=== PATIENT | female | born 2000 | race African-American/Black ===

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

== ENCOUNTER 2020-01-07 19:31 | Emergency (ER) | payer SELFPAY ==
[2020-01-07 19:39] VITALS: BP 131/58
--- NOTE | 2020-01-07 19:47 | ER Document Report ---
ED Medical Screen (RME) - General Chief Complaint: Nausea/Vomiting/Diarrhea Stated Complaint: VOMITING/NAUSEA/DIARRHEA Time Seen by Provider: 01/07/20 19:38 Mode of Arrival: Ambulatory Information source: Patient Notes: 19-year-old female presents to ED for complaint of abdominal pain diarrhea and headache. She states on Saturday she went to [email or web address] and by Saturday night she was having some severe abdominal pain and diarrhea. She states by Saturday she had a headache abdominal pain and soft stools. She states today she has had a headache and abdominal pain but no stools today. She states she did start her menstrual cycle this morning. 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 Patient is alert oriented respirations regular nonlabored speaking in full sentences. She states she cannot go back to work until she gets a work note. I will order blood and urine and have her evaluated by another provider. Patient states she has not had anything to eat since 1 PM and she has not had any abdominal pain since she ate last time. She states she did have pain right after she ate but she gets the pain worse right after she eats. I have greeted and performed a rapid initial assessment of this patient. A comprehensive ED assessment and evaluation of the patient, analysis of test results and completion of medical decision making process will be conducted by an additional ED providers. TRAVEL OUTSIDE OF THE [place] IN LAST 30 DAYS: No - Related Data Allergies/Adverse Reactions: Penicillins Allergy (Verified 06/03/19 15:19) Past Medical History Renal/ Medical History: Denies: Hx Peritoneal Dialysis - Immunizations Immunizations up to date: Yes Hx Diphtheria, Pertussis, Tetanus Vaccination: Yes Physical Exam - Vital signs Vitals: Temp Pulse Resp BP Pulse Ox 98.2 F 83 18 131/58 H 98 01/07/20 19:39 01/07/20 19:39 01/07/20 19:39 01/07/20 19:39 01/07/20 19:39 Course - Vital Signs Vital signs: Temp Pulse Resp BP Pulse Ox 98.2 F 83 18 131/58 H 98 01/07/20 19:39 01/07/20 19:39 01/07/20 19:39 01/07/20 19:39 01/07/20 19:39
[2020-01-07 20:55] LABS: APPEARANCE,URINE SLIGHTLY-CLOUDY; BILIRUBIN,URINE NEGATIVE (NEGATIVE); COLOR,URINE YELLOW; GLUCOSE, URINE NEGATIVE (NEGATIVE); KETONES,URINE NEGATIVE (NEGATIVE); LEUKOCYTE ESTERASE,URINE SMALL (NEGATIVE); NITRITE,URINE NEGATIVE (NEGATIVE); PROTEIN,URINE 30 mg/dL (NEGATIVE); URINE SPECIFIC GRAVITY 1.023; UROBILINOGEN,URINE NEGATIVE mg/dL (<2.0)
== END 2020-01-07 22:15 | disposition left against medical advice (07) ==
LOC: ER 19:31
DX: R10.9 Unspecified abdominal pain (principal); R19.7 Diarrhea, unspecified; R51.9 Headache, unspecified; Z88.0 Allergy status to penicillin; Z53.20 Procedure and treatment not carried out because of patient's decision for unspecified reasons
CPT/HCPCS: 81001; 81025; 99281

== ENCOUNTER 2020-03-14 19:09 | Emergency (ER) | payer SELFPAY ==
[2020-03-14] MEDS ORDERED: ONDANSETRON HCL INJ/PF 4 MG/2 ML SDV IV ONE (20:34)
[2020-03-14] MEDS ORDERED: NORMAL SALINE 1000 ML 1,000 ML IV ONE (20:34)
--- NOTE | 2020-03-14 20:36 | ER Document Report ---
ED Medical Screen (RME) - General Chief Complaint: Abdominal Pain Stated Complaint: STOMACH CRAMPS, NAUSEA Time Seen by Provider: 03/14/20 20:29 Mode of Arrival: Ambulatory Information source: Patient Notes: HPI; 20-year-old female with no previous medical problems presents to the emergency room complaining of nausea and abdominal cramping. Patient states she ate at [employer] last night and about an hour after eating she became nauseous and started cramping. States she feels like she has to have a bowel movement but has been unable to have one. No vomiting, no fevers, no urinary symptoms. States a family member gave her something for the nausea but she does not recall what it was states it did not help. States she tried taking MiraLAX without relief. PE: Alert and oriented x3. Lungs: Clear to auscultation without rales, rhonchi, wheezes. Heart: Tachycardic without murmurs, rubs, gallops. I have greeted and performed a rapid initial assessment of this patient. A comprehensive ED assessment and evaluation of the patient, analysis of test results and completion of the medical decision making process will be conducted by additional ED providers. I have specifically instructed the patient or family members with the patient to immediately return to any nursing staff should anything change in the patient's condition or with their chief complaint. TRAVEL OUTSIDE OF THE [place] IN LAST 30 DAYS: No - Related Data Allergies/Adverse Reactions: Penicillins Allergy (Verified 06/03/19 15:19) Past Medical History Renal/ Medical History: Denies: Hx Peritoneal Dialysis - Immunizations Immunizations up to date: Yes Hx Diphtheria, Pertussis, Tetanus Vaccination: Yes Physical Exam - Vital signs Vitals: Temp Pulse Resp BP Pulse Ox 99.0 F 108 H 20 127/69 H 99 03/14/20 19:38 03/14/20 19:38 03/14/20 19:38 03/14/20 19:38 03/14/20 19:38 Course - Vital Signs Vital signs: Temp Pulse Resp BP Pulse Ox 99.0 F 108 H 20 127/69 H 99 03/14/20 19:38 03/14/20 19:38 03/14/20 19:38 03/14/20 19:38 03/14/20 19:38
[2020-03-14 21:14] LABS: ABSOLUTE BASOPHILS # (AUTO) 0.1 10^3/uL (0.0-0.2); ABSOLUTE LYMPHOCYTES (AUTO) 1.4 10^3/uL (0.5-4.7); ABSOLUTE MONOCYTES (AUTO) 0.6 10^3/uL (0.1-1.4); ABSOLUTE NEUT (AUTO) 10.2 10^3/uL (1.7-8.2); BASOPHILS % (AUTO) 0.5 % (0-2); EOSINOPHILS % (AUTO) 0.1 % (0-6); HEMATOCRIT 36.5 % (36.0-47.0); HEMOGLOBIN 11.6 g/dL (12.0-15.5); LYMPHOCYTES % (AUTO) 11.3 % (13-45); MEAN CORPUSCULAR HEMOGLOBIN 24.9 pg (27.0-33.4); MEAN CORPUSCULAR HGB CONC 31.8 g/dL (32.0-36.0); MEAN CORPUSCULAR VOLUME 78 fl (80-97); MONOCYTES % (AUTO) 4.7 % (3-13); PLATELET COUNT 314 10^3/uL (150-450); RED BLOOD COUNT 4.66 10^6/uL (3.72-5.28); RED CELL DISTRIBUTION WIDTH 14.5 % (11.5-14.0); SEGMENTED NEUTROPHILS % (AUTO) 83.4 % (42-78); TOTAL CELLS COUNTED % (AUTO) 100 %; WHITE BLOOD COUNT 12.2 10^3/uL (4.0-10.5)
[2020-03-14 21:17] LABS: APPEARANCE,URINE CLEAR; BILIRUBIN,URINE NEGATIVE (NEGATIVE); COLOR,URINE STRAW; GLUCOSE, URINE NEGATIVE (NEGATIVE); KETONES,URINE NEGATIVE (NEGATIVE); LEUKOCYTE ESTERASE,URINE TRACE (NEGATIVE); NITRITE,URINE NEGATIVE (NEGATIVE); PROTEIN,URINE NEGATIVE (NEGATIVE); URINE SPECIFIC GRAVITY 1.003; UROBILINOGEN,URINE NEGATIVE mg/dL (<2.0)
[2020-03-14 21:37] LABS: ALBUMIN 4.4 g/dL (3.5-5.0); ALKALINE PHOSPHATASE 89 U/L (38-126); ANION GAP 9 (5-19); ASPARTATE AMINO TRANSFERASE 24 U/L (14-36); BILIRUBIN,DIRECT 0.1 mg/dL (0.0-0.4); BILIRUBIN,TOTAL 0.8 mg/dL (0.2-1.3); BLOOD UREA NITROGEN 8 mg/dL (7-20); CALCIUM 10.4 mg/dL (8.4-10.2); CARBON DIOXIDE 26 mmol/L (22-30); CHLORIDE 104 mmol/L (98-107); GLUCOSE 104 mg/dL (75-110); POTASSIUM 3.9 mmol/L (3.6-5.0)
--- NOTE | 2020-03-14 22:46 | RADIOLOGY REPORT (SQ) ---
EXAM DESCRIPTION: XR ABDOMEN 1 VIEW (KUB) COMPLETED DATE/TME: 03/14/2020 22:09 CLINICAL HISTORY: 20 years, Female, abdominal pain COMPARISON: None. NUMBER OF VIEWS: 2 TECHNIQUE: AP abdomen LIMITATIONS: None. FINDINGS: Nonspecific, nonobstructive bowel gas pattern. Evaluation for free air limited on a supine view. Abundant stool in the colon. Osseous structures are intact IMPRESSION: Abundant stool in the colon copyright 2010 [employer]- All Rights Reserved
--- NOTE | 2020-03-15 03:50 | ER Document Report ---
ED General - General Chief Complaint: Abdominal Pain Stated Complaint: STOMACH CRAMPS, NAUSEA Time Seen by Provider: 03/14/20 20:29 Mode of Arrival: Ambulatory TRAVEL OUTSIDE OF THE [place] IN LAST 30 DAYS: No - HPI Context: Chief Complaint: Abdominal cramps Historian: History obtained from patient HPI: This is a-year-old female presents to the ED complaining abdominal cramping x3 days. Patient says she ate at [employer] and soon after developed lower abdominal cramps. But no vomiting. Patient says she has not had a bowel movement in about 3 days which is unusual for her. eating or drinking will worsen these abdominal cramps, nothing relieves them. She took one of her friends nausea medications which did help her symptoms temporarily. Nominal cramping is intermittent and nonradiating. She denies dysuria, hematuria, vaginal discharge, fever, chills. No history abdominal surgeries. ROS: Constitutional: no fevers. HEENT: no TREJO, sore throat, or vision changes. CV: no chest pain or palpitations. Resp: no cough or SOB. GI: Lower abdominal cramping. Nausea. : no dysuria, hematuria, or incont. MSK: no back pain, no joint swelling/redness. Skin: no rashes or itching. Neuro: no seizures, weakness, numbness, or confusion. Hematological: no ecchymosis or easy bleeding. Endocrine: no polyuria/polydipsia, no heat/cold intolerance. Psych: no SI/HI, AH/VH or memory loss. PMHx: Reviewed and agree as charted by RN. PSHx: Reviewed and agree as charted by RN. SOCHx: Reviewed and agree as charted by RN. FHX: No significant familial comorbid conditions directly related to patient complaint Current Medications: Reviewed and agree with the patient medications as charted by the RN. Allergies: Reviewed and agree with the listed allergies as charted by the RN Physical Exam: Vitals: Reviewed in chart as documented by RN. General: Alert and in NAD. Head: Normocephalic; atraumatic Eyes: PERRLA, Conjunctivae clear sclerae non-icteric bilat ENT: no soft palate swelling or uvular deviation Neck: trachea midline, no unilateral swelling/tenderness/lymphadenopathy CV: RRR, no M/R/G; symmetric distal pulses Resp: respirations even and unlabored, CTA bilat. GI: Abdomen soft and nondistended. Tender at right lower quadrant McBurney's. Positive Rovsing sign. Negative psoas sign. Bowel sounds. No masses or HSM. No CVA tenderness bilaterally MSK: FROM of all extremities. No midline CTL spine tenderness/deformity Skin: warm, moist, good turgor. no rash/lesions Neuro: Alert and oriented X 4. following CN 2-12 intact. no unilateral weakness/numbness Psych: No SI/HI or AH/VH. ED Results: Medical Decision-Making: Diagnosis: Condition: Disposition: Notes: Chief Complaint: abdominal cramps Historian: History obtained from patient HPI: This is a 20 yo females the presents to the ER c/o lowe rabdominal cramping X 3 days. PT says she ate [employer] saturday and developed lower abdominal cramping soon after. cramping is intermittent and nonradiating. worse w/ eating. PT is tolerating small amounts of po intake. mild nausea but no vomiting. no BM in 3 days, pt usually has a BM daily. Denies fever, chills, dysuria, vaignal discharge, hematuria, cp, or sob. took a friends nausea medica tion which did help her symptoms temporarily. no prior abdominal surgeries. ROS: Constitutional: no fevers. HEENT: no TREJO, sore throat, or vision changes. CV: no chest pain or palpitations. Resp: no cough or SOB. GI: positive abdominal pain and nausea : no dysuria, hematuria, or incont. MSK: no back pain, no joint swelling/redness. Skin: no rashes or itching. Neuro: no seizures, weakness, numbness, or confusion. Hematological: no ecchymosis or easy bleeding. Endocrine: no polyuria/polydipsia, no heat/cold intolerance. Psych: no SI/HI, AH/VH or memory loss. PMHx: Reviewed and agree as charted by RN. PSHx: Reviewed and agree as charted by RN. SOCHx: Reviewed and agree as charted by RN. FHX: No significant familial comorbid conditions directly related to patient complaint Current Medications: Reviewed and agree with the patient medications as charted by the RN. Allergies: Reviewed and agree with the listed allergies as charted by the RN Physical Exam: Vitals: Reviewed in chart as documented by RN. General: Alert and in NAD. Head: Normocephalic; atraumatic Eyes: PERRLA, Conjunctivae clear sclerae non-icteric bilat ENT: no soft palate swelling or uvular deviation Neck: trachea midline, no unilateral swelling/tenderness/lymphadenopathy CV: RRR, no M/R/G; symmetric distal pulses Resp: respirations even and unlabored, CTA bilat. GI: abd soft and nondistended. tender to RLQ at mcburney's, positive rovsigns, neg psoas. mild voluntary guarding. no rebound. no cvat. MSK: FROM of all extremities. No midline CTL spine tenderness/deformity Skin: warm, moist, good turgor. no rash/lesions Neuro: Alert and oriented X 4. following CN 2-12 intact. no unilateral weakness/numbness Psych: No SI/HI or AH/VH. ED Results: Medical Decision-making/Differential Diagnosis: Consider various etiologies including but not limited to UTI, pyelonephritis, STD, PID, constipation, viral syndrome, AGE, ectopic , IUP, Abdominal pain, Hernia, Acute Gastritis, Appendicitis, Partial or Complete small bowel obstruction, Cholecysitis, Diverticulitis, Gastroenteritis, GERD, Nephrolithiasis, Pancreatitis, Peptic Ulcer Disease, Urinary Tract Infection, Pyelonephritis, Infection, metabolic derangement, ect plan - triage provider ordered UA/preg, basic labs, and KUB. labs reviwed- wbc 12.5. KUB- moderate stool burden This course of action was discussed with the patient and/or family. They were amenable to this, verbalized understanding, and were without further questions. - Related Data Allergies/Adverse Reactions: Penicillins Allergy (Verified 06/03/19 15:19) Past Medical History - General Information source: Patient - Social History Smoking Status: Never Smoker Family History: Reviewed & Not Pertinent Renal/ Medical History: Denies: Hx Peritoneal Dialysis - Immunizations Immunizations up to date: Yes Hx Diphtheria, Pertussis, Tetanus Vaccination: Yes Physical Exam - Vital signs Vitals: Temp Pulse Resp BP Pulse Ox 99.0 F 108 H 20 127/69 H 99 03/14/20 19:38 03/14/20 19:38 03/14/20 19:38 03/14/20 19:38 03/14/20 19:38 Course - Re-evaluation Re-evalutation: 03/15/20 03:59 Patient does appear to be constipated on her KUB. Considering her age and tenderness to the right lower quadrant I do have concern for an acute appendicitis. I recommended the patient that we obtain a CT scan to rule this out. She declined this and says she wants medication to help her go to the bathroom and to go home. The RN and myself had a further conversation with the patient once mom left as to our concerns about a possible appendicitis and the possible complications, including , if she does not get prompt treated for an acute appendicits. PT verbalized understanding but says her mother is pressuring her to leave and go home. Pt says she will f/u w/ her pcp and will also have her closely monitor her symptoms at home and if she developes worsening pain, fever/chill, vomiting she is to return immediately to the ER for a CT scan. she was also told the if she is able to have a BM and continues to have RLQ pain then she should also return right away. she verbalized understanding and agreed to plan. - Vital Signs Vital signs: Temp Pulse Resp BP Pulse Ox 98.5 F 97 16 119/59 L 99 03/15/20 01:48 03/15/20 01:48 03/15/20 01:48 03/15/20 01:48 03/15/20 01:48 - Laboratory Result Diagrams: 03/14/20 20:55 03/14/20 20:55 Laboratory results interpreted by me: 03/14/20 03/14/20 03/14/20 20:55 20:55 20:55 WBC 12.2 H Hgb 11.6 L MCV 78 L MCH 24.9 L MCHC 31.8 L RDW 14.5 H Lymph % (Auto) 11.3 L Absolute Neuts (auto) 10.2 H Seg Neutrophils % 83.4 H Calcium 10.4 H Ur Leukocyte Esterase TRACE H Discharge - Discharge Clinical Impression: Right lower quadrant abdominal pain Constipation Qualifiers: Constipation type: unspecified constipation type Qualified Code(s): K59.00 - Constipation, unspecified Condition: Stable Disposition: HOME, SELF-CARE Instructions: Constipation ([facility]), Observation for Appendicitis ([facility]) Additional Instructions: take medications as prescribed. drink plenty of fluids. there is a possibility that your symptoms could be appendicitis which is a surgical emergency. IF you have onging right lower abdominal pain, vomiting, fever, or chills- then immediately return to the ER to have a Cat scan of you abdomen. follow up with your doctor tomorrow for a recheck. Prescriptions: Ondansetron [Zofran Odt 4 mg Tablet] 1 - 2 tab PO Q4HP PRN #10 tab.rapdis PRN Reason: Magnesium Citrate [Citrate of Magnesia 296 ml Bottle] 296 ml PO DAILY #1 bottle Forms: Return to Work
[2020-03-15 04:36] VITALS: BP 114/61
== END 2020-03-15 04:39 | disposition home or self-care (01) ==
LOC: ER 19:09
DX: K59.00 Constipation, unspecified (principal); R10.31 Right lower quadrant pain; R11.0 Nausea; R10.30 Lower abdominal pain, unspecified; Z88.0 Allergy status to penicillin
CPT/HCPCS: 36415; 74018; 80053; 81001; 84703; 85025; 99284

== ENCOUNTER 2020-03-16 11:56 | Emergency (ER) | payer SELFPAY ==
--- NOTE | 2020-03-16 12:09 | ER Document Report ---
ED Medical Screen (RME) - General Chief Complaint: Abdominal Pain Stated Complaint: ABDOMINAL PAIN Time Seen by Provider: 03/16/20 12:07 Mode of Arrival: Ambulatory Information source: Patient Notes: 20-year-old female presents to ED for complaint of left flank pain and right lower abdomen pain. She states they started Saturday and she came here yesterday she states the doctor yesterday want to do a CAT scan but she was in a hurry because her ride needed to leave and he told her if it had any more pain she was to come back to get the CAT scan. Will review the urine and blood and probably order the CAT scan at this time. I have reviewed the labs she did have elevated white count I will order the CT abdomen pelvis with IV and oral contrast. I have greeted and performed a rapid initial assessment of this patient. A comprehensive ED assessment and evaluation of the patient, analysis of test results and completion of medical decision making process will be conducted by an additional ED providers. TRAVEL OUTSIDE OF THE [place] IN LAST 30 DAYS: No - Related Data Allergies/Adverse Reactions: Penicillins Allergy (Verified 06/03/19 15:19) Past Medical History Renal/ Medical History: Denies: Hx Peritoneal Dialysis - Immunizations Immunizations up to date: Yes Hx Diphtheria, Pertussis, Tetanus Vaccination: Yes Physical Exam - Vital signs Vitals: Temp Pulse Resp BP Pulse Ox 98.2 F 74 16 122/59 L 99 03/16/20 12:01 03/16/20 12:03/16/20 12:01 03/16/20 12:01 03/16/20 12:01 Course - Vital Signs Vital signs: Temp Pulse Resp BP Pulse Ox 98.2 F 74 16 122/59 L 99 03/16/20 12:01 03/16/20 12:01 03/16/20 12:01 03/16/20 12:01 03/16/20 12:01
[2020-03-16 13:14] LABS: ABSOLUTE BASOPHILS # (AUTO) 0.1 10^3/uL (0.0-0.2); ABSOLUTE EOSINOPHILS # (AUTO) 0.1 10^3/uL (0.0-0.6); ABSOLUTE LYMPHOCYTES (AUTO) 1.6 10^3/uL (0.5-4.7); ABSOLUTE MONOCYTES (AUTO) 0.4 10^3/uL (0.1-1.4); ABSOLUTE NEUT (AUTO) 3.2 10^3/uL (1.7-8.2); BASOPHILS % (AUTO) 0.9 % (0-2); EOSINOPHILS % (AUTO) 1.2 % (0-6); HEMATOCRIT 34.9 % (36.0-47.0); HEMOGLOBIN 11.1 g/dL (12.0-15.5); LYMPHOCYTES % (AUTO) 30.2 % (13-45); MEAN CORPUSCULAR HEMOGLOBIN 25.3 pg (27.0-33.4); MEAN CORPUSCULAR HGB CONC 31.9 g/dL (32.0-36.0); MEAN CORPUSCULAR VOLUME 79 fl (80-97); MONOCYTES % (AUTO) 7.8 % (3-13); PLATELET COUNT 295 10^3/uL (150-450); RED BLOOD COUNT 4.41 10^6/uL (3.72-5.28); RED CELL DISTRIBUTION WIDTH 14.2 % (11.5-14.0); SEGMENTED NEUTROPHILS % (AUTO) 59.9 % (42-78); TOTAL CELLS COUNTED % (AUTO) 100 %; WHITE BLOOD COUNT 5.4 10^3/uL (4.0-10.5)
[2020-03-16] MEDS ORDERED: ONDANSETRON 4 MG TAB.RAPDIS PO ONE (13:25)
[2020-03-16] MEDS ORDERED: MORPHINE SULFATE 10 MG/ML INJ IV ONE (13:25)
[2020-03-16] MEDS ORDERED: NORMAL SALINE 1000 ML 1,000 ML IV ONE (13:25)
[2020-03-16 13:29] LABS: ALKALINE PHOSPHATASE 84 U/L (38-126); ANION GAP 9 (5-19); ASPARTATE AMINO TRANSFERASE 22 U/L (14-36); BILIRUBIN,TOTAL 0.6 mg/dL (0.2-1.3); BLOOD UREA NITROGEN 13 mg/dL (7-20); CALCIUM 9.7 mg/dL (8.4-10.2); CARBON DIOXIDE 26 mmol/L (22-30); CHLORIDE 104 mmol/L (98-107); GLUCOSE 80 mg/dL (75-110); POTASSIUM 4.1 mmol/L (3.6-5.0); TOTAL PROTEIN 7.5 g/dL (6.3-8.2)
[2020-03-16 13:43] LABS: APPEARANCE,URINE CLEAR; BILIRUBIN,URINE NEGATIVE (NEGATIVE); COLOR,URINE YELLOW; GLUCOSE, URINE NEGATIVE (NEGATIVE); KETONES,URINE NEGATIVE (NEGATIVE); URINE SPECIFIC GRAVITY 1.028
[2020-03-16 13:44] LABS: ADD MANUAL MICROSCOPIC YES; LEUKOCYTE ESTERASE,URINE NEGATIVE (NEGATIVE); NITRITE,URINE NEGATIVE (NEGATIVE); PROTEIN,URINE NEGATIVE (NEGATIVE)
[2020-03-16 13:46] LABS: RBC,URINE NONE SEEN /HPF
--- NOTE | 2020-03-16 15:53 | RADIOLOGY REPORT (SQ) ---
EXAM DESCRIPTION: CT ABD/PELVIS WITH IV ORAL IMAGES COMPLETED DATE/TIME: 03/16/2020 3:32 pm REASON FOR STUDY: Abdominal pain COMPARISON: 03/14/2020 TECHNIQUE: CT scan of the abdomen and pelvis performed using helical scanning technique with dynamic intravenous contrast injection. Patient was given oral contrast. Images reviewed with lung, soft ti ssue, and bone windows. Reconstructed coronal and sagittal MPR images reviewed. Delayed images for ev aluation of the urinary system also acquired. All images stored on PACS. All CT scanners at this facility use dose modulation, iterative reconstruction, and/or weight based d osing when appropriate to reduce radiation dose to as low as reasonably achievable (ALARA). [facility]: Dose Right [facility]: CareDose [facility]: Dose Right [facility]: Teradose 4D [facility]: Alloptic CONTRAST TYPE AND DOSE: contrast/concentration: Isovue 350.00 mmol/ml; Total Contrast Delivered: 80. 0 ml; Total Saline Delivered: 41.0 ml RENAL FUNCTION: None required. The patient is less than 50 years old. RADIATION DOSE: CT Rad equipment meets quality standard of care and radiation dose reduction techniq ues were employed. CTDIvol: 6.1 - 7.9 mGy. DLP: 686 mGy-cm.. LIMITATIONS: None. FINDINGS: LOWER CHEST: No significant findings. No nodules or infiltrates. LIVER: Normal size. No masses. No dilated ducts. SPLEEN: Normal size. No focal lesions. PANCREAS: No masses. No significant calcifications. No adjacent inflammation or peripancreatic fluid collections. Pancreatic duct not dilated. GALLBLADDER: No identified stones by CT criteria. No inflammatory changes to suggest cholecystitis. ADRENAL GLANDS: No significant masses or asymmetry. RIGHT KIDNEY AND URETER: No solid masses. No significant calcifications. No hydronephrosis or hyd roureter. LEFT KIDNEY AND URETER: No solid masses. No significant calcifications. No hydronephrosis or hydr oureter. AORTA AND VESSELS: No aneurysm. No dissection. Renal arteries, SMA, celiac without stenosis. RETROPERITONEUM: No retroperitoneal adenopathy, hemorrhage or masses. BOWEL AND PERITONEAL CAVITY: There is a small amount of fluid within the right paracolic gutter (seri es 5, image [id number] 54). The appendix is normal in caliber and contrast and gas filled (series 5, image [id number] -[id number]). No evidence of intestinal obstruction. Questionable wall thickening at the cecum. . APPENDIX: As above. PELVIS: Unremarkable urinary bladder. Fluid within the endometrial canal. Bilateral ovarian follicl es and a dominant cyst on the right likely. No pelvic free fluid. ABDOMINAL WALL: No masses. Small fat containing umbilical hernia. BONES: No acute bony abnormality. No suspicious osseous lesions. OTHER: No other significant finding. IMPRESSION: 1. Minimal inflammatory fluid within the right paracolic gutter with apparent thickenin g at the cecum. The appendix is visualized and normal in caliber with gas and contrast within the edson men. Findings possibly related to colitis although follow-up should be considered if symptoms persis t. 2. Fluid and thickening of the endometrial canal, likely related to hemorrhage/menstruation. Recomm end correlation with gynecologic history. 3. No other evidence of acute intra-abdominal/pelvic process. Findings discussed with Dr. Son At 1547 hours on 03/16/2020. TECHNICAL DOCUMENTATION: JOB ID: [id number] Quality ID # [id number]: Final reports with documentation of one or more dose reduction techniques (e.g., Au tomated exposure control, adjustment of the mA and/or kV according to patient size, use of iterative reconstruction technique) 2010 [employer]- All Rights Reserved Reading location - IP/workstation name: [email or web address]
--- NOTE | 2020-03-16 16:00 | ER Document Report ---
ED General - General Chief Complaint: Abdominal Pain Stated Complaint: ABDOMINAL PAIN Time Seen by Provider: 03/16/20 12:07 Mode of Arrival: Ambulatory Information source: Patient TRAVEL OUTSIDE OF THE [place] IN LAST 30 DAYS: No - HPI Notes: Patient presents with right lower quadrant abdominal pain. Patient states she has had this pain for 4 to 5 days. Some nausea. No vomiting or diarrhea. She has had a bowel movement without relief. She states she has not found anything else that as relief. The pain is worse with movement and better with rest. No dysuria urgency or frequency. No vaginal symptoms. Patient had a test done 2 days ago which was negative. She was seen here in the emergency department compliantly 2 days ago. However she had to leave she states because her ride would not allow her to stay for the CAT scan. She states the main reason she came back today was to have a CAT scan performed. She says she wants the CAT scan because the pain continues. Her appetite has been decreased somewhat. No previous history of abdominal problems. - Related Data Allergies/Adverse Reactions: Penicillins Allergy (Verified 06/03/19 15:19) Past Medical History - General Information source: Patient - Social History Smoking Status: Never Smoker Chew tobacco use (# tins/day): No Frequency of alcohol use: None Drug Abuse: None Family History: Reviewed & Not Pertinent Renal/ Medical History: Denies: Hx Peritoneal Dialysis - Immunizations Immunizations up to date: Yes Hx Diphtheria, Pertussis, Tetanus Vaccination: Yes Review of Systems - Review of Systems Constitutional: denies: Chills, Fever Cardiovascular: denies: Chest pain, Palpitations Respiratory: denies: Cough, Short of breath -: Yes All other systems reviewed and negative Physical Exam - Vital signs Vitals: Temp Pulse Resp BP Pulse Ox 98.2 F 74 16 122/59 L 99 03/16/20 12:01 03/16/20 12:01 03/16/20 12:01 03/16/20 12:01 03/16/20 12:01 Interpretation: Normal - General General appearance: Appears well, Alert - HEENT Head: Normocephalic, Atraumatic Eyes: Normal Pupils: PERRL - Respiratory Respiratory status: No respiratory distress Chest status: Nontender Breath sounds: Normal Chest palpation: Normal - Cardiovascular Rhythm: Regular Heart sounds: Normal auscultation Murmur: No - Abdominal Inspection: Normal Distension: No distension Bowel sounds: Normal Tenderness: Tender - rlq Organomegaly: No organomegaly - Back Back: Normal, Nontender - Extremities General upper extremity: Normal inspection, Nontender, Normal color, Normal ROM, Normal temperature General lower extremity: Normal inspection, Nontender, Normal color, Normal ROM, Normal temperature, Normal weight bearing. No: Jose L's sign - Neurological Neuro grossly intact: Yes Cognition: Normal Orientation: AAOx4 [place] Coma Scale Eye Opening: Spontaneous [place] Coma Scale Verbal: Oriented [place] Coma Scale Motor: Obeys Commands [place] Coma Scale Total: 15 Speech: Normal Motor strength normal: LUE, RUE, LLE, RLE Sensory: Normal - Psychological Associated symptoms: Normal affect, Normal mood - Skin Skin Temperature: Warm Skin Moisture: Dry Skin Color: Normal Course - Re-evaluation Re-evalutation: 03/16/20 16:00 Patient presents with right lower quadrant abdominal pain. Patient CT scan shows some focal wall thickening of the cecum. It seems to possibly be consistent with an infectious process. I discussed this with the radiologist. Radiologist assures me that he can see the appendix and it is definitely normal. Patient has no white count no fever. I have called and spoke with the maintenance custodian, Dr. Martinez. He states that he would like the patient to be placed on antibiotics and he will see the patient in approximately 1 week. This seems reasonable since patient is nontoxic, vitals are normal and patient is agreeable. - Vital Signs Vital signs: Temp Pulse Resp BP Pulse Ox 98.2 F 74 16 122/59 L 99 03/16/20 12:01 03/16/20 12:01 03/16/20 12:01 03/16/20 12:01 03/16/20 12:01 - Laboratory Results Result Diagrams: 03/16/20 12:30 03/16/20 12:30 Laboratory Results Interpreted: 03/16/20 03/16/20 12:30 12:30 Hgb 11.1 L Hct 34.9 L MCV 79 L MCH 25.3 L MCHC 31.9 L RDW 14.2 H Urine Urobilinogen 2.0 H Critical Laboratory Results Reviewed: No Critical Results - Radiology Results Critical Radiology Results Reviewed: No Critical Results Discharge - Discharge Clinical Impression: Colitis, Right lower quadrant abdominal pain Condition: Stable Disposition: HOME, SELF-CARE Instructions: Abdominal Pain ([facility]) Additional Instructions: Please either go to Dr. Martinez's office or call them today to arrange for an appointment in approximately 1 week. If you have further problems with increasing pain, vomiting, fevers or any concerns before you can see Dr. Martinez please return to the emergency department. Prescriptions: Ciprofloxacin HCl [Cipro 500 mg Tablet] 500 mg PO BID 7 Days #14 tablet Metronidazole [Flagyl 500 mg Tablet] 500 mg PO BID 7 Days #14 tablet Hydrocodone/Acetaminophen [Vernalis 5-325 mg Tablet] 1 tab PO Q6 PRN 3 Days #12 tablet PRN Reason: Forms: Return to Work Referrals: ROMERO MARTINEZ MD [ACTIVE STAFF] - Follow up in 1 week
[2020-03-16 16:43] VITALS: BP 109/46
== END 2020-03-16 16:37 | disposition home or self-care (01) ==
LOC: ER 11:56
DX: K52.9 Noninfective gastroenteritis and colitis, unspecified (principal); R10.31 Right lower quadrant pain; R11.0 Nausea; Z88.0 Allergy status to penicillin
CPT/HCPCS: 99285; 96361; 96374; 36415; 83690; 85025; 80053; 81001; 74177; S0119; J2270; J7030

== ENCOUNTER 2020-04-20 13:16 | Emergency (ER) | payer SELFPAY ==
--- NOTE | 2020-04-20 13:52 | ER Document Report ---
ED Medical Screen (RME) - General Chief Complaint: Flank Pain Stated Complaint: LEFT FLANK PAIN,VAGINAL BLEEDING TRAVEL OUTSIDE OF THE [place] IN LAST 30 DAYS: No - HPI Notes: 04/20/20 13:50 Rapid Medical Exam HPI: Is a 20-year-old female complaining of left flank pain that began this morning. Patient says she noticed a small amount of blood when she wiped after urinating this morning. No other vaginal discharge or vaginal bleeding. She denies dysuria or, hematuria, nausea vomiting diarrhea, fever chills. No prior abdominal surgeries. No history of kidney stones. Last menstrual period was 04/01 and regular. She is not on control. Physical Exam: GENERAL: Well-appearing, well-nourished and in no acute distress. HEAD: Atraumatic, normocephalic. ENT: Moist mucous membranes. RESP: Respirations even and unlabored CV- Regular rate. NEURO: No focal neurological deficits. Moves all extremities spontaneously and on command. My involvement in this patients care was limited to a rapid initial assessment. A comprehensive ED assessment and evaluation of the patient, analysis of test results, treatment, and completion of the medical decision making process will be performed by other ER providers. - Related Data Allergies/Adverse Reactions: Penicillins Allergy (Verified 06/03/19 15:19) Past Medical History Renal/ Medical History: Denies: Hx Peritoneal Dialysis - Immunizations Immunizations up to date: Yes Hx Diphtheria, Pertussis, Tetanus Vaccination: Yes Physical Exam - Vital signs Vitals: Temp Pulse Resp BP Pulse Ox 98.1 F 66 16 112/60 100 04/20/20 13:26 04/20/20 13:26 04/20/20 13:26 04/20/20 13:26 04/20/20 13:26 Course - Vital Signs Vital signs: Temp Pulse Resp BP Pulse Ox 98.1 F 66 16 112/60 100 04/20/20 13:26 04/20/20 13:26 04/20/20 13:26 04/20/20 13:26 04/20/20 13:26
[2020-04-20 14:16] LABS: ABSOLUTE LYMPHOCYTES (AUTO) 1.5 10^3/uL (0.5-4.7); ABSOLUTE MONOCYTES (AUTO) 0.3 10^3/uL (0.1-1.4); ABSOLUTE NEUT (AUTO) 2.9 10^3/uL (1.7-8.2); BASOPHILS % (AUTO) 0.5 % (0-2); EOSINOPHILS % (AUTO) 0.9 % (0-6); HEMATOCRIT 37.9 % (36.0-47.0); LYMPHOCYTES % (AUTO) 31.3 % (13-45); MEAN CORPUSCULAR HEMOGLOBIN 24.5 pg (27.0-33.4); MEAN CORPUSCULAR HGB CONC 31.5 g/dL (32.0-36.0); MEAN CORPUSCULAR VOLUME 78 fl (80-97); MONOCYTES % (AUTO) 6.6 % (3-13); PLATELET COUNT 258 10^3/uL (150-450); RED BLOOD COUNT 4.87 10^6/uL (3.72-5.28); RED CELL DISTRIBUTION WIDTH 14.3 % (11.5-14.0); SEGMENTED NEUTROPHILS % (AUTO) 60.7 % (42-78); TOTAL CELLS COUNTED % (AUTO) 100 %; WHITE BLOOD COUNT 4.7 10^3/uL (4.0-10.5)
[2020-04-20 14:21] LABS: APPEARANCE,URINE CLEAR; BILIRUBIN,URINE NEGATIVE (NEGATIVE); COLOR,URINE YELLOW; GLUCOSE, URINE NEGATIVE (NEGATIVE); KETONES,URINE NEGATIVE (NEGATIVE); LEUKOCYTE ESTERASE,URINE TRACE (NEGATIVE); NITRITE,URINE NEGATIVE (NEGATIVE); PROTEIN,URINE NEGATIVE (NEGATIVE); URINE SPECIFIC GRAVITY 1.013; UROBILINOGEN,URINE NEGATIVE mg/dL (<2.0)
[2020-04-20 14:51] LABS: ALKALINE PHOSPHATASE 72 U/L (38-126); ASPARTATE AMINO TRANSFERASE 25 U/L (14-36); BILIRUBIN,DIRECT 0.1 mg/dL (0.0-0.4); BILIRUBIN,TOTAL 0.6 mg/dL (0.2-1.3); BLOOD UREA NITROGEN 8 mg/dL (7-20); CALCIUM 9.9 mg/dL (8.4-10.2); CARBON DIOXIDE 29 mmol/L (22-30); CHLORIDE 104 mmol/L (98-107); GLUCOSE 85 mg/dL (75-110); POTASSIUM 4.4 mmol/L (3.6-5.0); TOTAL PROTEIN 7.3 g/dL (6.3-8.2)
[2020-04-20 14:59] LABS: ANION GAP 4 (5-19)
[2020-04-20 17:19] LABS: BACTERIA (WET MOUNT) 4+ BACTERIA SEEN; EPITHELIALS (WET MOUNT) 3+ EPITHELIALS SEEN; RBCS (WET MOUNT) 1+ RBCS SEEN; T.VAGINALIS (WET MOUNT) NO TRICHOMONAS SEEN; WBCS (WET MOUNT) 1+ WBCS SEEN; YEAST (WET MOUNT) NO YEAST SEEN
--- NOTE | 2020-04-20 18:02 | RADIOLOGY REPORT (SQ) ---
EXAM DESCRIPTION: U/S NON OB PEL TV W/DOPPLER IMAGES COMPLETED DATE/TIME: 04/20/2020 5:47 pm REASON FOR STUDY: vaginal bleeding, left flank pain LMP 04/01/2020 COMPARISON: 08/11/2019 TECHNIQUE: Dynamic and static grayscale images acquired of the pelvis via transvaginal approach and recorded on PACS. Additional selected color Doppler and spectral images recorded. LIMITATIONS: None. FINDINGS: UTERUS: Contour normal. No mass. ENDOMETRIAL STRIPE: Slightly heterogeneous. No definable masses. CERVIX: No nabothian cysts. RIGHT OVARY AND DOPPLER: Normal size. No worrisome masses. Normal arterial vascular flow without evid ence for torsion. LEFT OVARY AND DOPPLER: Normal size. 3.2 x 2.2 x 1.8 cm cyst with 2 small daughter cysts. No worris ome masses. Normal arterial vascular flow without evidence for torsion. FREE FLUID: None noted. OTHER: No other significant finding. MEASUREMENTS: UTERUS: 8.5 x 4.9 x 4.1 cm. ENDOMETRIAL STRIPE: 13 mm. RIGHT OVARY: 3.5 x 2.9 x 2.3 cm. LEFT OVARY: 4.6 x 3 x 2 cm. IMPRESSION: Small left ovarian cyst is almost certainly benign. No additional imaging is required f or this. TECHNICAL DOCUMENTATION: JOB ID: [id number] 2010 [employer]- All Rights Reserved Rev-08/23 Reading location - IP/workstation name: [email or web address]
[2020-04-20] MEDS ORDERED: IBUPROFEN 400 MG TABLET PO ONE (18:47)
[2020-04-20 18:50] LABS: CHLAM PCR DETECTED (NOT DETECT)
--- NOTE | 2020-04-20 18:50 | ER Document Report ---
ED General - General Chief Complaint: Flank Pain Stated Complaint: LEFT FLANK PAIN,VAGINAL BLEEDING Time Seen by Provider: 04/20/20 15:55 Primary Care Provider: ANATOLIY MORAES MD [ACTIVE PROVISIONAL STAFF] - Follow up in 3-5 days TRAVEL OUTSIDE OF THE [place] IN LAST 30 DAYS: No - HPI Notes: Patient is a 20-year-old female with no significant past medical history who presents with left side pain and possible vaginal bleeding. States that she woke up today and had pain to her left side. It is an achy pain. She states she wiped when she went to the bathroom and there was blood on the toilet paper. She is unsure where she is bleeding from. She states she ended her period on April 01. Patient is sexually active. She denies any concern for STDs. Patient denies any blood in the stool. She has no dysuria. No fevers or chills. She has never had any abdominal surgeries. - Related Data Allergies/Adverse Reactions: Penicillins Allergy (Verified 06/03/19 15:19) Past Medical History - General Information source: Patient - Social History Smoking Status: Never Smoker Family History: Reviewed & Not Pertinent Patient has homicidal ideation: No Renal/ Medical History: Denies: Hx Peritoneal Dialysis - Immunizations Immunizations up to date: Yes Hx Diphtheria, Pertussis, Tetanus Vaccination: Yes Review of Systems - Review of Systems Notes: CONSTITUTIONAL: No fever, fatigue or weight loss. SKIN: No rash. HENT: No congestion, ear pain, or sore throat. EYES: No recent vision problems or eye pain. ENDOCRINE: No thyroid problems. No polyuria or polydipsia. CARDIOVASCULAR: No chest pain or edema. RESPIRATORY: No cough, shortness of breath, congestion, or wheezing. GASTROINTESTINAL: No abdominal pain, nausea, vomiting, bloody stools or diarrhea. GENITOURINARY: No dysuria. MUSCULOSKELETAL: Positive for left side pain. LYMPHATIC: No swollen glands. NEUROLOGIC: No seizures. No headache, focal weakness or sensory changes. HEMATOLOGIC: Positive for bleeding. PSYCHIATRIC: No depression or anxiety. Physical Exam - Vital signs Vitals: Temp Pulse Resp BP Pulse Ox 98.1 F 66 16 112/60 100 04/20/20 13:26 04/20/20 13:26 04/20/20 13:04/20/20 13:26 04/20/20 13:26 - General General appearance: Appears well In distress: None Notes: VITAL SIGNS: Within normal limits. GENERAL: No acute distress, non-toxic appearance. HEAD: Normal with no signs of head trauma. EYES: Conjunctiva normal, no discharge. EARS: Hearing grossly intact. NECK: Normal range of motion, no tenderness, supple, no lymphadenopathy, No adenopathy, no JVD. CHEST: Clear breath sounds bilaterally. CARDIAC: Regular rate and rhythm. VASCULAR: No Edema. ABDOMEN: Normal and soft with no tenderness, no masses or pulsatile masses. : Pelvic exam performed with female linux administrator nurse. Patient had some dark red blood in the vaginal vault. No clots. Non tender to exam. MUSCULOSKELETAL: Good range of motion of all major joints. Extremities without clubbing, cyanosis or edema. NEUROLOGICAL: Alert and oriented x 3. No focal sensory or strength deficits. Speech normal. Follows commands appropriately. PSYCHIATRIC: Normal Affect, judgement and mood. SKIN: Normal appearance with no rashes or lesions. Course - Re-evaluation Re-evalutation: 04/20/20 20:59 Patient had blood in the vaginal vault on exam. This is the site of her bleeding that she had when she wiped. I obtained a transvaginal ultrasound which showed a small left ovarian cyst. No other acute findings. Patient was told about this. She was told she needs to follow-up with OB and provided the number. Prior to discharge, patient's chlamydia returned positive. I discussed this with her. I told her she needs to avoid intercourse with her partner to avoid retransmitting the STD until he is tested and treated. Patient was given azithromycin. She was told to follow-up about the vaginal bleeding. It may just be an irregular cycle. Strict return precautions provided. - Vital Signs Vital signs: Temp Pulse Resp BP Pulse Ox 98.3 F 70 18 133/68 H 100 04/20/20 19:27 04/20/20 19:27 04/20/20 19:27 04/20/20 19:27 04/20/20 19:27 - Laboratory Results Result Diagrams: 04/20/20 14:01 04/20/20 14:01 Laboratory Results Interpreted: 04/20/20 04/20/20 04/20/20 14:01 14:01 14:01 MCV 78 L MCH 24.5 L MCHC 31.5 L RDW 14.3 H Anion Gap 4 L Urine Blood MODERATE H Ur Leukocyte Esterase TRACE H Chlamydia DNA (PCR) 04/20/20 17:00 MCV MCH MCHC RDW Anion Gap Urine Blood Ur Leukocyte Esterase Chlamydia DNA (PCR) DETECTED H Critical Laboratory Results Reviewed: No Critical Results - Radiology Results Critical Radiology Results Reviewed: No Critical Results Discharge - Discharge Clinical Impression: Left flank pain, Vaginal bleeding, Chlamydia Condition: Stable Disposition: HOME, SELF-CARE Instructions: Abdominal Pain ([facility]), Vaginal Bleeding ([facility]) Additional Instructions: Work-up today is reassuring. Please follow-up with TOY DEPARTMENT MANAGER. You have a small left ovarian cyst. Please take your antibiotics as prescribed for bacterial vaginosis. You may take either Tylenol and ibuprofen for the side pain. Return to the ER for any worsening symptoms Forms: Return to Work Referrals: ANATOLIY MORAES MD [ACTIVE PROVISIONAL STAFF] - Follow up in 3-5 days
[2020-04-20] MEDS ORDERED: AZITHROMYCIN 250 MG TABLET PO ONE (19:06)
[2020-04-20 19:28] VITALS: BP 133/68
== END 2020-04-20 19:28 | disposition home or self-care (01) ==
LOC: ER 13:16
DX: N93.9 Abnormal uterine and vaginal bleeding, unspecified (principal); A74.9 Chlamydial infection, unspecified; N83.202 Unspecified ovarian cyst, left side; Z88.0 Allergy status to penicillin
CPT/HCPCS: 99284; 36415; 87210; 83690; 85025; 81025; 80053; 81001; 87491; 87591; 76830; 93976; J3490